=== PATIENT | male | born 1990 | race African-American/Black ===

== ENCOUNTER 2020-11-19 18:07 | Emergency (ER) | payer OTHER ==
[2020-11-19 18:22] VITALS: BP 119/67; PULSE 67; TEMP 99.1; BMI 22.4
[2020-11-19] MEDS ORDERED: IBUPROFEN 600 MG TABLET (FP) PO ONE (19:35)
== END 2020-11-19 21:40 | disposition home or self-care (01) ==
LOC: JER 18:07
DX: S61.211A Laceration without foreign body of left index finger without damage to nail, initial encounter (principal)
CPT/HCPCS: 73130-TC-LT-FY; 99283-25